=== PATIENT | female | born 1990 | race Caucasian/White ===

== ENCOUNTER 2017-02-23 19:24 | Emergency (ER) | payer MEDICAID ==
[2017-02-23 19:24] VITALS: BMI 24.6
[2017-02-23 19:52] VITALS: BP 153/76; PULSE 95; RESP 16; TEMP 98; O2SAT 99
--- NOTE | 2017-02-23 20:07 | ED PDOC ---
HPI: Female Pain Time Seen by Provider: 02/23/17 19:53 Chief Complaint (Nursing): Female Genitourinary Chief Complaint (Provider): Vaginal Discharge History Per: Patient History/Exam Limitations: no limitations Onset/Duration Of Symptoms: Persistent (1 week ) Current Symptoms Are (Timing): Still Present Severity: Moderate Additional Complaint(s): Joie Farr is a 26 y/o female presenting to the ER on 02/23/2017 with complaints of vaginal discharge x1 week. Patient reports discharge is "watery" and is accompanied with a fish-smelling odor. Patient states her current symptoms are similar when she was diagnosed with BV in the past. Reports having a pap smear and culture done about 3 months ago. She admits to being sexually active and uses protection 100% of the time. Past Medical History Reviewed: Historical Data, Nursing Documentation, Vital Signs Vital Signs: Last Vital Signs Temp 98.0 F 02/23/17 19:49 Pulse 95 H 02/23/17 19:49 Resp 16 02/23/17 19:49 BP 153/76 H 02/23/17 19:49 Pulse Ox 99 02/23/17 19:49 - Medical History Other PMH: Bacterial Vaginitis - Surgical History Surgical History: No Surg Hx - Family History Family History: States: Unknown Family Hx - Home Medications Home Medications: Ambulatory Orders Medication Instructions Recorded oxyCODONE/Acetaminophen [Percocet 1 tab PO Q4 PRN #30 tab 07/05/14 5/325 mg Tab] Dicyclomine [Bentyl] 20 mg PO BID #14 tab 03/26/16 Famotidine [Pepcid] 20 mg PO DAILY #30 tab 03/26/16 Ondansetron ODT [Zofran ODT] 4 mg PO TID #21 odt 03/26/16 Clotrimazole 1% Vaginal [Lotrimin 45 applic VG DAILY #7 tube 09/24/16 1% Vaginal] Fluconazole 150 mg PO QOTHERDAY #2 tablet 09/24/16 metroNIDAZOLE [Flagyl] 500 mg PO BID #14 tab 02/23/17 - Allergies Allergies/Adverse Reactions: Allergies Allergy/AdvReac Type Severity Reaction Status Date / Time No Known Allergies Allergy Verified 02/23/17 19:49 Review of Systems ROS Statement: Except As Marked, All Systems Reviewed And Found Negative Constitutional: Negative for: Fever Genitourinary Female: Positive for: Vaginal Discharge Physical Exam - Reviewed Nursing Documentation Reviewed: Yes Vital Signs Reviewed: Yes - Physical Exam Appears: Positive for: Non-toxic, No Acute Distress Head Exam: Positive for: ATRAUMATIC, NORMOCEPHALIC Skin: Positive for: Normal Color, Warm, Dry Eye Exam: Positive for: Normal appearance, EOMI, PERRL Neck: Positive for: Normal, Painless ROM, Supple Cardiovascular/Chest: Positive for: Regular Rate, Rhythm. Negative for: Murmur Respiratory: Positive for: Normal Breath Sounds. Negative for: Respiratory Distress Pelvic Exam: Positive for: Other (Denied pelvic exam ) Extremity: Positive for: Normal ROM. Negative for: Deformity Neurologic/Psych: Positive for: Alert, Oriented. Negative for: Motor/Sensory Deficits - ECG O2 Sat by Pulse Oximetry: 99 Medical Decision Making Medical Decision Makin:53 Initial Impression- Vaginal Discharge Upon evaluation, pt was not concerned with chances for any STDs and denied a routine pelvic exam. I explained to her that a possible diagnoses may include an STI but she continued to deny examination of her pelvic area. Pt will be discharged routinely with a prescription for Flagyl. Advised to return if condition persists or worsens. Condition is stable for discharge Clinical Impression- BV Documented by Lui Tran, acting as a scribe for Ileana Clemente PA-C All medical record entries made by the Scribe were at my direction and personally dictated by me. I have reviewed the chart and agree that the record accurately reflects my personal performance of the history, physical exam, medical decision making, and the department course for this patient. I have also personally directed, reviewed, and agree with the discharge instructions and disposition. Disposition - Clinical Impression Clinical Impression: Bacterial vaginitis - Disposition Prescriptions: metroNIDAZOLE [Flagyl] 500 mg PO BID #14 tab Instructions: Bacterial Vaginosis (ED)
== END 2017-02-23 20:17 | disposition home or self-care (01) ==
LOC: H.ER 19:24
DX: N76.0 Acute vaginitis (principal)